=== PATIENT | female | born 1940 | race Caucasian/White ===

== ENCOUNTER 2019-03-28 14:17 | Emergency (ER) | payer MEDICARE, OTHER ==
--- NOTE | 2019-03-28 14:52 | RAD ---
EXAM: CHEST ONE VIEW HISTORY: Tingling and pain in left arm COMPARISON: None FINDINGS: The cardiac silhouette and pulmonary vasculature is within normal limits. There is linear atelectasis versus scarring. The lungs are otherwise clear. The osseous structures are intact. Thoracic aorta is ectatic. IMPRESSION: No acute cardiopulmonary process.
--- NOTE | 2019-03-28 15:06 | CT ---
CT HEAD WITHOUT IV CONTRAST COMPARISON: None. HISTORY: None TECHNIQUE: Axial CT imaging at 5 mm intervals from vertex through skull base without contrast FINDINGS: There is a low-density focus seen within the right basal ganglia which may represent a small lacunar infarction of indeterminate age. There is no evidence of an acute cortical infarction, hemorrhage, mass effect, or midline shift. The ventricular system is normal in size, shape, and position. Visualized paranasal sinuses are clear. Osseous structures appear intact. IMPRESSION: 1. No acute intracranial abnormality demonstrated.However, there is a small lacunar infarction in the right basal ganglia of indeterminate age.
[2019-03-28] MEDS ORDERED: traMADol HCl 50 MG TAB ONE (15:09)
[2019-03-28] MEDS ORDERED: Ondansetron ODT 8 MG TAB ONE (15:09)
[2019-03-28 15:32] LABS: #Eosinphils 0.2 thou/uL (0.0-0.7); #Lymphocytes 1.7 thou/uL (1.20-3.40); #Monocytes 0.3 thou/uL (0.11-0.59); #Neutrophils 2.5 thou/uL (1.40-6.50); %Basophils 0.6 % (0.0-1.0); %Lymphocytes 35.5 % (21.0-51.0); %Monocytes 6.9 % (0.0-10.0); Hemoglobin 14.3 g/dL (12.0-16.0); Mean Corpuscular HGB CONC 34.9 g/dL (32.0-36.0); Mean Corpuscular Hemoglobin 33.5 pg (27.0-31.0); Mean Corpuscular Volume 96.1 fL (78.0-98.0); Mean Platelet Volume 7.9 fL (7.4-10.4); Platelet Count 243 thou/uL (130-400); RBC Distribution Width 11.2 % (11.5-14.5); Red Blood Cell (RBC) Count 4.27 mill/uL (4.20-5.40); White Blood Cell (WBC) Count 4.8 thou/uL (4.8-10.8)
[2019-03-28 15:53] LABS: ALT (SGPT) 16 U/L (8-55); AST (SGOT) 16 U/L (5-34); Albumin 4.5 g/dL (3.4-4.8); Alkaline Phosphatase 80 U/L (40-110); Anion Gap 11 mmol/L (10-20); BUN (Urea Nitrogen) 18 mg/dL (9.8-20.1); Bilirubin, Total 0.5 mg/dL (0.2-1.2); CK (CPK) 145 U/L (29-168); Calc. Creatinine Clearance 0 mL/min (70-130); Calcium 9.3 mg/dL (7.8-10.44); Carbon Dioxide 27 mmol/L (23-31); Chloride 105 mmol/L (98-107); Estimated GFR-MDRD 68; Glucose 93 mg/dL (83-110); Potassium 4.1 mmol/L (3.5-5.1); Protein, Total 7.5 g/dL (6.0-8.3); Sodium 139 mmol/L (136-145)
== END 2019-03-28 16:05 | disposition home or self-care (01) ==
LOC: ERS 14:17
DX: M54.12 Radiculopathy, cervical region (principal); M79.602 Pain in left arm; I10 Essential (primary) hypertension; F41.9 Anxiety disorder, unspecified; Z79.82 Long term (current) use of aspirin; Z79.899 Other long term (current) drug therapy
CPT/HCPCS: 36415; 70450; 71045; 80053; 82550; 84484; 85025; 93005; 94760

== ENCOUNTER 2019-04-03 13:57 | Outpatient (CLI) | payer MEDICARE, OTHER ==
--- NOTE | 2019-04-03 14:23 | RAD ---
XR Shoulder Lt 3 View STANDARD HISTORY: Left shoulder pain FINDINGS: No fracture or dislocation is identified. There are degenerative changes in the acromioclavicular ciic nt.
--- NOTE | 2019-04-03 15:14 | RAD ---
CERVICAL SPINE 4 VIEWS: Date: 04/03/19 HISTORY: Left shoulder pain, neck pain radiating down left arm to hand. FINDINGS: Multilevel degenerative changes are present. No fracture, subluxation, or bony destruction seen. IMPRESSION: Cervical spondylosis. POS: [facility]
== END 2019-04-03 13:58 | disposition home or self-care (01) ==
LOC: BICRAD 13:57
PROVIDERS: ATTEND Nurse Practitioner
DX: M25.512 Pain in left shoulder (principal); M19.012 Primary osteoarthritis, left shoulder; M47.812 Spondylosis without myelopathy or radiculopathy, cervical region
CPT/HCPCS: 72040

== ENCOUNTER 2023-11-22 10:51 | Outpatient (CLI) | payer MEDICARE, OTHER | END 2023-11-22 10:52 | disposition home or self-care (01) | LOC: BICRAD 10:51 | PROVIDERS: ATTEND Nurse Practitioner Family | DX: M25.512 Pain in left shoulder (principal); M19.012 Primary osteoarthritis, left shoulder ==

== ENCOUNTER 2024-07-11 13:42 | Outpatient (CLI) | payer MEDICARE | END 2024-07-11 13:43 | disposition home or self-care (01) | LOC: BICULT 13:42 | PROVIDERS: ATTEND Nurse Practitioner Family | DX: I10 Essential (primary) hypertension (principal); F33.1 Major depressive disorder, recurrent, moderate; E55.9 Vitamin D deficiency, unspecified; E78.5 Hyperlipidemia, unspecified; M25.512 Pain in left shoulder; E66.9 Obesity, unspecified; Z68.31 Body mass index [BMI] 31.0-31.9, adult; Z79.899 Other long term (current) drug therapy | CPT/HCPCS: 93880 ==